=== PATIENT | male | born 1975 | race Caucasian/White ===

== ENCOUNTER 2017-09-05 10:00 | Emergency (ER) | payer BC ==
[~2017-09-05] VITALS: Ht 188 cm; Wt 146.0 kg
[2017-09-05 10:43] LABS: BASOPHILS # (AUTO) 0.03 x10^3/uL (0-0.1); BASOPHILS % (AUTO) 0 % (0-1); EOSINOPHILS # (AUTO) 0.34 x10^3/uL (0-0.4); EOSINOPHILS % (AUTO) 4 % (1-7); LYMPHOCYTES # (AUTO) 1.69 x10^3/uL (1-3.4); LYMPHOCYTES % (AUTO) 21 % (22-44); MD NO; MEAN CORPUSCULAR HEMOGLOBIN 30.4 pg (27.5-34.5); MEAN CORPUSCULAR HGB CONC 34.7 g/dL (33.2-36.2); MEAN CORPUSCULAR VOLUME 87.4 fL (81-97); MEAN PLATELET VOLUME 8.2 fL (7.4-10.4); MONOCYTES # (AUTO) 0.46 x10^3/uL (0.2-0.8); MONOCYTES % (AUTO) 6 % (2-9); NEUTROPHILS # (AUTO) 5.68 x10^3/uL (1.8-6.8); NEUTROPHILS % (AUTO) 69 % (42-75); PLATELET COUNT 282 x10^3/uL (130-400); RED BLOOD COUNT 5.44 x10^6/uL (4.38-5.82); RED CELL DISTRIBUTION WIDTH 13.1 % (9.4-14.8)
[2017-09-05 10:50] LABS: INTERNATIONAL NORMALIZED RATIO 0.98 (0.93-1.1); PROTHROMBIN TIME 10.2 Seconds (9.6-11.5)
[2017-09-05 10:54] LABS: ALBUMIN 3.4 g/dL (3.4-5.0); ANION GAP 7 mmol/L (5-15); CALCIUM 8.4 mg/dL (8.5-10.1); CHLORIDE 109 mmol/L (98-107); CREATININE 1.05 mg/dL (0.7-1.3)
[2017-09-05 10:58] LABS: TROPONIN I 0.021 ng/mL (0.000-0.045)
[2017-09-05] MEDS ORDERED: PLEASE ENTER ALLERGIES MC SCH (11:53)
[2017-09-05] MEDS ORDERED: FENTANYL PF 100 MCG/2ML ONE (11:55)
[2017-09-05] MEDS ORDERED: ETOMIDATE 20 MG/10 ML ONE (11:55)
[2017-09-05] MEDS ORDERED: ETOMIDATE 20 MG/10 ML IVPush ONE (12:00)
[2017-09-05] MEDS ORDERED: FENTANYL PF 100 MCG/2ML IVPush ONE (12:00)
[2017-09-05 12:27] VITALS: BP 126/72
== END 2017-09-05 13:57 | disposition home or self-care (01) ==
LOC: ED 10:47
DX: I48.92 Unspecified atrial flutter (principal); I48.91 Unspecified atrial fibrillation
CPT/HCPCS: 36415; 71045; 80048; 82040; 84484; 85025; 85610; 85730; 92960; 93005; 96374; 96375; 99291; J3010

== ENCOUNTER 2017-09-16 13:35 | Emergency (ER) | payer BC ==
[~2017-09-16] VITALS: Ht 188 cm; Wt 152.4 kg
[2017-09-16 14:25] LABS: BASOPHILS # (AUTO) 0.03 x10^3/uL (0-0.1); BASOPHILS % (AUTO) 0 % (0-1); EOSINOPHILS # (AUTO) 0.45 x10^3/uL (0-0.4); EOSINOPHILS % (AUTO) 6 % (1-7); LYMPHOCYTES # (AUTO) 1.79 x10^3/uL (1-3.4); LYMPHOCYTES % (AUTO) 22 % (22-44); MD NO; MEAN CORPUSCULAR HEMOGLOBIN 29.7 pg (27.5-34.5); MEAN CORPUSCULAR HGB CONC 33.9 g/dL (33.2-36.2); MEAN CORPUSCULAR VOLUME 87.5 fL (81-97); MEAN PLATELET VOLUME 8.1 fL (7.4-10.4); MONOCYTES # (AUTO) 0.41 x10^3/uL (0.2-0.8); MONOCYTES % (AUTO) 5 % (2-9); NEUTROPHILS # (AUTO) 5.65 x10^3/uL (1.8-6.8); NEUTROPHILS % (AUTO) 68 % (42-75); PLATELET COUNT 264 x10^3/uL (130-400); RED BLOOD COUNT 5.33 x10^6/uL (4.38-5.82); RED CELL DISTRIBUTION WIDTH 12.6 % (9.4-14.8)
[2017-09-16] MEDS ORDERED: SODIUM CHLORIDE FLUSH 10ML SYR IVF ONE (14:30)
[2017-09-16 14:35] LABS: ALBUMIN 3.7 g/dL (3.4-5.0); ANION GAP 7 mmol/L (5-15); CALCIUM 8.5 mg/dL (8.5-10.1); CHLORIDE 108 mmol/L (98-107); CREATININE 0.97 mg/dL (0.7-1.3)
[2017-09-16 14:39] LABS: TROPONIN I < 0.015 ng/mL (0.000-0.045)
[2017-09-16 15:28] VITALS: BP 120/79
== END 2017-09-16 15:30 | disposition home or self-care (01) ==
LOC: ED 15:21
DX: R06.00 Dyspnea, unspecified (principal); I48.91 Unspecified atrial fibrillation; I48.92 Unspecified atrial flutter
CPT/HCPCS: 36415; 71045; 80048; 82040; 84484; 85025; 93005; 99285

== ENCOUNTER → 2017-09-21 | Outpatient (CLI) | payer BC ==
[~2017-09-21] MED LIST: ACET325T14 PO; AMIO200T42 PO; APIX5TAB PO; METO25TA35 PO; MORPHINE SULFATE 4 MG/ML, 1ML ONE
== END ==
LOC: CVU 11:03
PROVIDERS: ATTEND Nurse Practitioner Family
DX: I48.91 Unspecified atrial fibrillation (principal); I51.7 Cardiomegaly
CPT/HCPCS: 93306

== ENCOUNTER 2017-09-24 06:31 | Inpatient (IN) | payer BC ==
[2017-09-23 10:40] LABS: BASOPHILS # (AUTO) 0.02 x10^3/uL (0-0.1); BASOPHILS % (AUTO) 0 % (0-1); EOSINOPHILS # (AUTO) 0.39 x10^3/uL (0-0.4); EOSINOPHILS % (AUTO) 4 % (1-7); LYMPHOCYTES # (AUTO) 1.88 x10^3/uL (1-3.4); LYMPHOCYTES % (AUTO) 20 % (22-44); MD NO; MEAN CORPUSCULAR HEMOGLOBIN 29.9 pg (27.5-34.5); MEAN CORPUSCULAR HGB CONC 33.9 g/dL (33.2-36.2); MEAN CORPUSCULAR VOLUME 88.1 fL (81-97); MEAN PLATELET VOLUME 8.3 fL (7.4-10.4); MONOCYTES # (AUTO) 0.39 x10^3/uL (0.2-0.8); MONOCYTES % (AUTO) 4 % (2-9); NEUTROPHILS # (AUTO) 6.85 x10^3/uL (1.8-6.8); NEUTROPHILS % (AUTO) 72 % (42-75); PLATELET COUNT 295 x10^3/uL (130-400); RED BLOOD COUNT 5.67 x10^6/uL (4.38-5.82); RED CELL DISTRIBUTION WIDTH 13.2 % (9.4-14.8)
[2017-09-23 10:47] LABS: INTERNATIONAL NORMALIZED RATIO 1.01 (0.93-1.1); PROTHROMBIN TIME 10.4 Seconds (9.6-11.5)
[2017-09-23 10:53] VITALS: BP 130/83
[2017-09-23 10:54] LABS: ALANINE AMINOTRANSFERASE 51 U/L (12-78); ALBUMIN 3.7 g/dL (3.4-5.0); ANION GAP 10 mmol/L (5-15); CALCIUM 8.6 mg/dL (8.5-10.1); CHLORIDE 106 mmol/L (98-107); CREATININE 1.05 mg/dL (0.7-1.3)
[2017-09-23 10:57] LABS: ALKALINE PHOSPHATASE 103 U/L (45-117); BILIRUBIN,TOTAL 0.7 mg/dL (0.2-1.0); TOTAL PROTEIN 7.7 g/dL (6.4-8.2)
[~2017-09-24] VITALS: Ht 188 cm; Wt 152.5 kg
[~2017-09-24 06:31] MED LIST changes: -ACET325T14 PO; -MORPHINE SULFATE 4 MG/ML, 1ML ONE
[2017-09-24] MEDS ORDERED: SODIUM CHLORIDE 0.9% 1,000 ML IV SCH (06:46)
[2017-09-24] MEDS ORDERED: FENTANYL PF 250 MCG/5ML ONE (07:50)
[2017-09-24] MEDS ORDERED: MIDAZOLAM 1 MG/ML, 2ML ONE (07:50)
[2017-09-24] MEDS ORDERED: ALBUTEROL SULFATE 200 PUFFS/8.5 GR INH ONE (08:00)
[2017-09-24] MEDS ORDERED: SUCCINYLCHOLINE 20 MG/ML, 10ML ONE (08:00)
[2017-09-24] MEDS ORDERED: EPHEDRINE 50 MG/ML, 1ML ONE (08:00)
[2017-09-24] MEDS ORDERED: ROCURONIUM 10 MG/ML,10ML ONE (08:00)
[2017-09-24] MEDS ORDERED: ONDANSETRON 2MG/ML, 2ML ONE (08:00)
[2017-09-24] MEDS ORDERED: DEXAMETHASONE 4 MG/ML, 5ML ONE (08:00)
[2017-09-24] MEDS ORDERED: PROPOFOL 10 MG/ML, 20ML ONE (08:00)
[2017-09-24] MEDS ORDERED: LIDOCAINE-MPF 2% ,5ML ONE (08:11)
[2017-09-24] MEDS ORDERED: HEPARIN 1,000 UNITS/ML, 10ML ONE (08:45)
[2017-09-24] MEDS ORDERED: PROTAMINE SULFATE 10 MG/ML, 5ML ONE (08:46)
[2017-09-24] MEDS ORDERED: FENTANYL PF 100 MCG/2ML ONE ×2 (09:54→10:19)
[2017-09-24] MEDS ORDERED: ZOLPIDEM 5MG TABLET PO PRN (10:00)
[2017-09-24] MEDS ORDERED: ACETAMINOPHEN 325 MG TABLET PO PRN (10:00)
[2017-09-24 10:46] LABS: FIO2 80 %
[2017-09-24] MEDS ORDERED: LACTULOSE 20 GM/30 ML UDC NG PRN (11:00)
[2017-09-24] MEDS ORDERED: SENNA/DOCUSATE TABLET NG PRN (11:00)
[2017-09-24] MEDS: ALBUTEROL/IPRATROPIUM 2.5MG/0.5MG, 3 ML INLINE SCH ×3 (11:00→22:26)
[2017-09-24] MEDS ORDERED: LIDOCAINE-MPF 1%, 2ML ENDO PRN (11:00)
[2017-09-24] MEDS ORDERED: PHARMACY MAY ADJ FOR RENAL FX MC SCH (11:00)
[2017-09-24] MEDS ORDERED: SENNOSIDES 8.8 MG/5 ML ORAL SOL NG PRN (11:00)
[2017-09-24] MEDS ORDERED: FAMOTIDINE 20 MG/2 ML IV SCH (11:00)
[2017-09-24] MEDS ORDERED: BISACODYL 10 MG SUPP PR PRN (11:00)
[2017-09-24] MEDS ORDERED: PROPOFOL 100 ML IV ONE (11:06)
[2017-09-24] MEDS: morphine SULFATE 10 MG/ML, 1ML IVPush PRN ×2 (11:39→19:14)
[2017-09-24] MEDS: PROPOFOL 100 ML IV PRN ×5 (13:28→20:37)
[2017-09-24] MEDS: RANITIDINE 50 MG in SODIUM CHLORIDE 0.9% 100 ML IV SCH ×2 (13:31→20:37)
[2017-09-24] MEDS: SODIUM CHLORIDE 0.9% 1,000 ML IV SCH (13:31)
[2017-09-24 16:00] LABS: MICROSCOPIC INDICATED
[2017-09-24 16:08] LABS: CULTURE INDICATED? NO
[2017-09-24] MEDS: APIXABAN 5 MG TABLET PO SCH (20:37)
[2017-09-24] MEDS ORDERED: METOPROLOL TARTRATE 25 MG TABLET PO SCH (21:00)
[2017-09-25] MEDS: PROPOFOL 100 ML IV PRN ×3 (01:02→06:01)
[2017-09-25] MEDS: morphine SULFATE 10 MG/ML, 1ML IVPush PRN ×2 (02:05→06:46)
[2017-09-25] MEDS: ALBUTEROL/IPRATROPIUM 2.5MG/0.5MG, 3 ML INLINE SCH ×3 (02:48→10:50)
[2017-09-25] MEDS ORDERED: FUROSEMIDE 20 MG/2 ML ONE (03:08)
[2017-09-25] MEDS ORDERED: FUROSEMIDE 20 MG/2 ML IV ONE ×2 (03:30→08:30)
[2017-09-25] MEDS: SODIUM CHLORIDE 0.9% 1,000 ML IV SCH ×2 (03:32→23:07)
[2017-09-25] MEDS ORDERED: RANITIDINE 50 MG in DEXTROSE 5% 100 ML IV ONE (04:00)
[2017-09-25 04:44] LABS: ANION GAP 10 mmol/L (5-15); CHLORIDE 111 mmol/L (98-107)
[2017-09-25 04:46] LABS: BASOPHILS % (AUTO) 0 % (0-1); CREATININE 1.28 mg/dL (0.7-1.3); EOSINOPHILS % (AUTO) 0 % (1-7); LYMPHOCYTES % (AUTO) 6 % (22-44); MD NO; MEAN CORPUSCULAR HEMOGLOBIN 29.6 pg (27.5-34.5); MEAN CORPUSCULAR HGB CONC 33.2 g/dL (33.2-36.2); MEAN CORPUSCULAR VOLUME 89.1 fL (81-97); MEAN PLATELET VOLUME 8.3 fL (7.4-10.4); MONOCYTES # (AUTO) 0.65 x10^3/uL (0.2-0.8); MONOCYTES % (AUTO) 5 % (2-9); NEUTROPHILS # (AUTO) 12.69 x10^3/uL (1.8-6.8); NEUTROPHILS % (AUTO) 90 % (42-75); PLATELET COUNT 282 x10^3/uL (130-400); RED BLOOD COUNT 4.69 x10^6/uL (4.38-5.82); RED CELL DISTRIBUTION WIDTH 13.4 % (9.4-14.8)
[2017-09-25] MEDS ORDERED: CEFTRIAXONE PMX 1GM/50ML 50 ML IV SCH (09:00)
[2017-09-25] MEDS ORDERED: AMIODARONE 200 MG TABLET PO SCH (09:00)
[2017-09-25] MEDS: METRONIDAZOLE PMX 500MG/100ML 100 ML IV SCH ×2 (10:16→17:59)
[2017-09-25] MEDS: APIXABAN 5 MG TABLET PO SCH ×2 (12:48→21:17)
[2017-09-25] MEDS: RANITIDINE 50 MG in SODIUM CHLORIDE 0.9% 100 ML IV SCH ×2 (12:48→19:52)
[2017-09-25] MEDS: ALBUTEROL/IPRATROPIUM 2.5MG/0.5MG, 3 ML NPPB SCH ×2 (14:44→19:07)
[2017-09-26] MEDS: METRONIDAZOLE PMX 500MG/100ML 100 ML IV SCH (01:19)
[2017-09-26 04:24] LABS: BASOPHILS # (AUTO) 0.01 x10^3/uL (0-0.1); BASOPHILS % (AUTO) 0 % (0-1); EOSINOPHILS # (AUTO) 0.04 x10^3/uL (0-0.4); EOSINOPHILS % (AUTO) 0 % (1-7); LYMPHOCYTES # (AUTO) 1.84 x10^3/uL (1-3.4); LYMPHOCYTES % (AUTO) 17 % (22-44); MD NO; MEAN CORPUSCULAR HEMOGLOBIN 29.4 pg (27.5-34.5); MEAN CORPUSCULAR HGB CONC 33.5 g/dL (33.2-36.2); MEAN CORPUSCULAR VOLUME 87.7 fL (81-97); MONOCYTES # (AUTO) 0.66 x10^3/uL (0.2-0.8); MONOCYTES % (AUTO) 6 % (2-9); NEUTROPHILS # (AUTO) 8.36 x10^3/uL (1.8-6.8); NEUTROPHILS % (AUTO) 77 % (42-75); PLATELET COUNT 202 x10^3/uL (130-400); RED BLOOD COUNT 4.34 x10^6/uL (4.38-5.82); RED CELL DISTRIBUTION WIDTH 13.3 % (9.4-14.8)
[2017-09-26 04:28] LABS: ANION GAP 6 mmol/L (5-15); CALCIUM 7.8 mg/dL (8.5-10.1); CHLORIDE 111 mmol/L (98-107)
[2017-09-26] MEDS: RANITIDINE 50 MG in SODIUM CHLORIDE 0.9% 100 ML IV SCH (04:28)
[2017-09-26 04:29] LABS: CREATININE 0.78 mg/dL (0.7-1.3)
[2017-09-26] MEDS: ALBUTEROL/IPRATROPIUM 2.5MG/0.5MG, 3 ML NPPB SCH (07:33)
[2017-09-26] MEDS: APIXABAN 5 MG TABLET PO SCH (07:41)
[2017-09-26] MEDS ORDERED: ACET325T14 PO (09:54)
== END 2017-09-26 11:06 | disposition home or self-care (01) | DRG 273 ==
LOC: CACL 06:31 → ORIP 09:52 → OBSVTOIN 11:15 → CCU 11:31
PROVIDERS: ADMIT Internal Medicine Cardiovascular Disease; ATTEND Internal Medicine Cardiovascular Disease
PROC: 02583ZZ Destruction of Conduction Mechanism, Percutaneous Approach (ICD-10-PCS; 2017-09-24)
PROC: 02563ZZ Destruction of Right Atrium, Percutaneous Approach (ICD-10-PCS; 2017-09-24)
PROC: 02573ZZ Destruction of Left Atrium, Percutaneous Approach (ICD-10-PCS; 2017-09-24)
PROC: 02K83ZZ Map Conduction Mechanism, Percutaneous Approach (ICD-10-PCS; 2017-09-24)
PROC: 0T9B70Z Drainage of Bladder with Drainage Device, Via Natural or Artificial Opening (ICD-10-PCS; 2017-09-24)
PROC: 4A0234Z Measurement of Cardiac Electrical Activity, Percutaneous Approach (ICD-10-PCS; principal; 2017-09-24 08:00)
DX: I48.1 Persistent atrial fibrillation (principal); J96.00 Acute respiratory failure, unspecified whether with hypoxia or hypercapnia; D68.69 Other thrombophilia; Z68.41 Body mass index [BMI] 40.0-44.9, adult; I48.92 Unspecified atrial flutter; E66.9 Obesity, unspecified; G47.33 Obstructive sleep apnea (adult) (pediatric); J45.909 Unspecified asthma, uncomplicated; Z79.01 Long term (current) use of anticoagulants; Z87.01 Personal history of pneumonia (recurrent); Z87.891 Personal history of nicotine dependence
CPT/HCPCS: 36415; 36600; 71045; 71046; 80048; 80053; 81001; 82803; 83735; 84478; 85025; 85347; 85610; 87070; 87081; 87205; 93005; 93308; 93613; 93655; 93656; 93662; 94002; 94003; 94150; 94640; C1732; C1766; C1893; C1894; J0696; J1100; J1644; J2250; J2405; J2704; J2720; J2780; J3010; J3490; J7620; C1730; C1759; G0378; J0330; J1940; J2270; J7030

== ENCOUNTER → 2017-11-11 | Outpatient (CLI) | payer BC ==
[~2017-11-11] MED LIST changes: +ACET325T14 PO; +OMNIPAQUE 350 MG/ML, 100ML BOTTLE ONE
== END | disposition home or self-care (01) ==
LOC: CFH 13:47
PROVIDERS: ATTEND Internal Medicine Cardiovascular Disease
DX: R06.02 Shortness of breath (principal); Z98.890 Other specified postprocedural states
CPT/HCPCS: 71260; Q9967

== ENCOUNTER → 2018-10-06 | Outpatient (CLI) | payer BC ==
[~2018-10-06] MED LIST changes: -OMNIPAQUE 350 MG/ML, 100ML BOTTLE ONE
== END | disposition home or self-care (01) ==
LOC: CVU 13:36
PROVIDERS: ATTEND Physician Assistant Medical
DX: I11.9 Hypertensive heart disease without heart failure (principal); I48.2 Chronic atrial fibrillation; Z79.01 Long term (current) use of anticoagulants
CPT/HCPCS: 93306

== ENCOUNTER 2019-11-30 06:07 | Day surgery (SDC) | payer BC ==
[~2019-11-30] VITALS: Ht 188 cm; Wt 160.0 kg
[2019-11-30] MEDS ORDERED: FLEC100T PO (06:08)
[2019-11-30] MEDS ORDERED: SODIUM CHLORIDE 0.9% 1,000 ML IV SCH (06:30)
[2019-11-30 06:54] LABS: BASOPHILS # (AUTO) 0.02 x10^3/uL (0-0.1); BASOPHILS % (AUTO) 0 % (0-1); EOSINOPHILS # (AUTO) 0.13 x10^3/uL (0-0.4); EOSINOPHILS % (AUTO) 2 % (1-7); LYMPHOCYTES # (AUTO) 1.54 x10^3/uL (1-3.4); LYMPHOCYTES % (AUTO) 18 % (22-44); MD NO; MEAN CORPUSCULAR HEMOGLOBIN 29.9 pg (27.5-34.5); MEAN CORPUSCULAR VOLUME 87.8 fL (81-97); MEAN PLATELET VOLUME 8.3 fL (7.4-10.4); MONOCYTES % (AUTO) 6 % (2-9); NEUTROPHILS # (AUTO) 6.18 x10^3/uL (1.8-6.8); NEUTROPHILS % (AUTO) 74 % (42-75); PLATELET COUNT 244 x10^3/uL (130-400); RED BLOOD COUNT 5.37 x10^6/uL (4.38-5.82); RED CELL DISTRIBUTION WIDTH 13.7 % (9.4-14.8)
[2019-11-30 07:33] LABS: ANION GAP 10 mmol/L (5-15); CALCIUM 8.4 mg/dL (8.5-10.1); CHLORIDE 112 mmol/L (98-107); CREATININE 0.83 mg/dL (0.7-1.3)
[2019-11-30] MEDS ORDERED: PROPOFOL 10 MG/ML, 20ML ONE (07:35)
[2019-11-30] MEDS ORDERED: NALOXONE 0.4 MG/ML, 1ML IVPush PRN ×2 (08:00)
== END 2019-11-30 09:03 | disposition home or self-care (01) ==
LOC: CACL 06:07
PROVIDERS: ATTEND Internal Medicine Clinical Cardiac Electrophysiology
DX: I48.20 Chronic atrial fibrillation, unspecified (principal); Z11.59 Encounter for screening for other viral diseases; F17.210 Nicotine dependence, cigarettes, uncomplicated; Z88.0 Allergy status to penicillin; Z79.899 Other long term (current) drug therapy; Z72.89 Other problems related to lifestyle; Z82.49 Family history of ischemic heart disease and other diseases of the circulatory system
CPT/HCPCS: 36415; 71046; 80048; 85025; 92960; 93005; 93312; 93321; J2704; U0001

== ENCOUNTER 2020-01-11 12:35 | Outpatient (CLI) | payer BC ==
[~2020-01-11 12:35] MED LIST changes: +FLEC100T PO
== END 2020-01-11 23:59 | disposition home or self-care (01) ==
LOC: STAR 12:35
PROVIDERS: ATTEND Surgery
DX: Z01.818 Encounter for other preprocedural examination (principal); Z11.59 Encounter for screening for other viral diseases; N63.20 Unspecified lump in the left breast, unspecified quadrant
CPT/HCPCS: 36415; 87635

== ENCOUNTER → 2020-01-29 | Outpatient (CLI) | payer BC ==
[~2020-01-29] MED LIST changes: +OMNIPAQUE 350 MG/ML, 150 ML BOTTLE ONE
== END | disposition home or self-care (01) ==
LOC: CFH 08:43
PROVIDERS: ATTEND Internal Medicine Cardiovascular Disease
DX: I48.0 Paroxysmal atrial fibrillation (principal)
CPT/HCPCS: 71046; 75572; Q9967

== ENCOUNTER → 2020-01-29 | Outpatient (CLI) | payer BC ==
[~2020-01-29] MED LIST changes: -OMNIPAQUE 350 MG/ML, 150 ML BOTTLE ONE
== END | disposition home or self-care (01) ==
LOC: STAR 10:37
PROVIDERS: ATTEND Anesthesiology
DX: Z01.818 Encounter for other preprocedural examination (principal); Z11.59 Encounter for screening for other viral diseases
CPT/HCPCS: 36415; 87635

== ENCOUNTER 2020-02-02 05:59 | Inpatient (IN) | payer BC ==
[~2020-02-02] VITALS: Ht 188 cm; Wt 147.7 kg
[2020-02-02] MEDS ORDERED: SODIUM CHLORIDE 0.9% 1,000 ML IV SCH (06:24)
[2020-02-02 06:29] VITALS: BP 152/102
[2020-02-02] MEDS ORDERED: LIDOCAINE 1%, 20ML ONE (07:44)
[2020-02-02] MEDS ORDERED: MIDAZOLAM 1 MG/ML, 2ML ONE (08:02)
[2020-02-02] MEDS ORDERED: FENTANYL PF 250 MCG/5ML ONE (08:02)
[2020-02-02] MEDS ORDERED: SUCCINYLCHOLINE 20 MG/ML, 10ML ONE (08:05)
[2020-02-02] MEDS ORDERED: DEXAMETHASONE 4 MG/ML, 1ML ONE ×2 (08:05)
[2020-02-02] MEDS ORDERED: PROPOFOL 10 MG/ML, 20ML ONE (08:05)
[2020-02-02] MEDS ORDERED: ROCURONIUM 10MG/ML,5ML ONE (08:05)
[2020-02-02] MEDS ORDERED: PHENYLEPHRINE 10 MG/ML ONE (08:05)
[2020-02-02] MEDS ORDERED: HEPARIN 1,000 UNITS/ML, 10ML ONE ×3 (08:53→09:32)
[2020-02-02] MEDS ORDERED: FENTANYL PF 100 MCG/2ML ONE ×2 (10:27→11:25)
[2020-02-02] MEDS ORDERED: MIDAZOLAM 1 MG/ML, 2ML IV PRN (12:00)
[2020-02-02] MEDS ORDERED: HYDROmorphone 1 MG/ML, 1ML INJ IVPush PRN (12:00)
[2020-02-02] MEDS ORDERED: EPHEDRINE 50 MG/ML, 1ML IVPush PRN (12:00)
[2020-02-02] MEDS ORDERED: ONDANSETRON 2MG/ML, 2ML IVPush PRN (12:00)
[2020-02-02] MEDS ORDERED: PROMETHAZINE 25 MG/ML, 1ML IVPush PRN (12:00)
[2020-02-02] MEDS ORDERED: FENTANYL PF 100 MCG/2ML IV PRN (12:00)
[2020-02-02] MEDS ORDERED: MEPERIDINE/PF 25MG/0.5ML IVPush PRN (12:00)
[2020-02-02] MEDS ORDERED: ACETAMINOPHEN 325 MG TABLET PO PRN (12:00)
[2020-02-02] MEDS ORDERED: ALBUTEROL SULFATE 2.5 MG/3 ML NPPB PRN (12:00)
[2020-02-02] MEDS ORDERED: hydrALAzine 20 MG/ML, 1ML IV PRN (12:00)
[2020-02-02] MEDS ORDERED: DIAZEPAM 5 MG/ML, 2ML IVPush PRN (12:00)
[2020-02-02] MEDS ORDERED: OXYcodone 5 MG/5 ML ORAL.SOL UDC PO PRN (12:00)
[2020-02-02] MEDS ORDERED: DIPHENHYDRAMINE 50 MG/ML, 1ML IVPush PRN (12:00)
[2020-02-02] MEDS ORDERED: LABETALOL 5MG/ML, 20ML IV PRN (12:00)
[2020-02-02] MEDS ORDERED: PROMETHAZINE 12.5 MG SUPP PR PRN (12:00)
[2020-02-02] MEDS ORDERED: APIXABAN 5 MG TABLET ONE (12:43)
[2020-02-02] MEDS: APIXABAN 5 MG TABLET PO SCH (12:44)
[2020-02-02 13:40] VITALS: BP 122/75
[2020-02-02 20:17] VITALS: BP 133/80
[2020-02-02] MEDS: DOFETILIDE 125 MCG CAPSULE PO SCH (21:00)
[2020-02-02] MEDS: COLCHICINE 0.6 MG CAPSULE PO SCH (21:09)
[2020-02-02] MEDS ORDERED: MELATONIN 5 MG TABLET PO SCH (21:30)
[2020-02-02 21:31] LABS: ANION GAP 6 mmol/L (5-15); CHLORIDE 110 mmol/L (98-107); CREATININE 0.96 mg/dL (0.7-1.3)
[2020-02-03 02:10] VITALS: BP 118/68
[2020-02-03 06:09] LABS: ANION GAP 6 mmol/L (5-15); CALCIUM 7.7 mg/dL (8.5-10.1); CHLORIDE 110 mmol/L (98-107)
[2020-02-03 06:13] LABS: CREATININE 0.69 mg/dL (0.7-1.3)
[2020-02-03 08:00] VITALS: BP 120/70
[2020-02-03] MEDS: DOFETILIDE 125 MCG CAPSULE PO SCH (09:00)
[2020-02-03] MEDS: COLCHICINE 0.6 MG CAPSULE PO SCH (09:16)
[2020-02-03] MEDS: APIXABAN 5 MG TABLET PO SCH (09:17)
[2020-02-03] MEDS ORDERED: FLECAINIDE 100MG TABLET PO SCH (10:00)
[2020-02-03] MEDS ORDERED: FLEC100T PO (10:42)
[2020-02-03] MEDS ORDERED: APIX5TAB PO (10:42)
[2020-02-03] MEDS ORDERED: COLC0.6C3 PO (10:51)
== END 2020-02-03 11:55 | disposition home or self-care (01) | DRG 274 ==
LOC: CACL 05:59 → ORIP 12:08 → 5SO 13:23 → DCLOUNGE 02-03 11:50
PROVIDERS: ADMIT Internal Medicine Cardiovascular Disease; ATTEND Internal Medicine Cardiovascular Disease
PROC: 02583ZZ Destruction of Conduction Mechanism, Percutaneous Approach (ICD-10-PCS; principal; 2020-02-02)
PROC: 4A0234Z Measurement of Cardiac Electrical Activity, Percutaneous Approach (ICD-10-PCS; 2020-02-02)
PROC: B245ZZZ Ultrasonography of Left Heart (ICD-10-PCS; 2020-02-02)
DX: I48.0 Paroxysmal atrial fibrillation (principal); D68.69 Other thrombophilia; Z68.41 Body mass index [BMI] 40.0-44.9, adult; E66.9 Obesity, unspecified; I48.19 Other persistent atrial fibrillation; Z87.891 Personal history of nicotine dependence; Z79.899 Other long term (current) drug therapy
CPT/HCPCS: 36415; 93613; 93656; 93657; 93662; J3490; 80048; 83735; 93005; 93306; C1732; C1766; C1893; C1894; G0378; J1100; J1644; J2250; J2704; J3010; C1730; C1759; J0330; J2370

== ENCOUNTER 2020-02-04 11:49 | Emergency (ER) | payer BC ==
[~2020-02-04] VITALS: Ht 188 cm; Wt 154.0 kg
[~2020-02-04 11:49] MED LIST changes: +COLC0.6C3 PO
--- NOTE | 2020-02-04 12:07 | NUR ---
Patient had ablation Saturday 02/03 and was discharged yesterday. Since discharge patient has been SOB with no improvement, patient also c/o [place], dizziness. Patient c/o 1/10 chest pain, O2 saturation 94% on RA, HR 63. Accompanied by significant other, A&Ox4, no visible signs of distress, connected to monitoring engineer.
[2020-02-04 12:38] LABS: BASOPHILS # (AUTO) 0.01 x10^3/uL (0-0.1); BASOPHILS % (AUTO) 0 % (0-1); EOSINOPHILS # (AUTO) 0.03 x10^3/uL (0-0.4); EOSINOPHILS % (AUTO) 0 % (1-7); LYMPHOCYTES # (AUTO) 1.56 x10^3/uL (1-3.4); LYMPHOCYTES % (AUTO) 12 % (22-44); MD NO; MEAN CORPUSCULAR HEMOGLOBIN 29.5 pg (27.5-34.5); MEAN CORPUSCULAR HGB CONC 32.8 g/dL (33.2-36.2); MEAN CORPUSCULAR VOLUME 89.9 fL (81-97); MEAN PLATELET VOLUME 8.1 fL (7.4-10.4); MONOCYTES # (AUTO) 0.62 x10^3/uL (0.2-0.8); MONOCYTES % (AUTO) 5 % (2-9); NEUTROPHILS # (AUTO) 10.41 x10^3/uL (1.8-6.8); NEUTROPHILS % (AUTO) 82 % (42-75); PLATELET COUNT 197 x10^3/uL (130-400); RED BLOOD COUNT 4.73 x10^6/uL (4.38-5.82); RED CELL DISTRIBUTION WIDTH 13.7 % (9.4-14.8)
[2020-02-04 12:50] LABS: ALANINE AMINOTRANSFERASE 49 U/L (12-78); ALBUMIN 3.5 g/dL (3.4-5.0); ANION GAP 5 mmol/L (5-15); CALCIUM 8.4 mg/dL (8.5-10.1); CHLORIDE 109 mmol/L (98-107); CREATININE 0.74 mg/dL (0.7-1.3)
[2020-02-04 12:54] LABS: ALKALINE PHOSPHATASE 73 U/L (45-117); BILIRUBIN,TOTAL 0.8 mg/dL (0.2-1.0); TOTAL PROTEIN 6.6 g/dL (6.4-8.2)
[2020-02-04 13:01] LABS: TROPONIN I 0.911 ng/mL (0.000-0.045)
--- NOTE | 2020-02-04 13:10 | NUR ---
TROPONIN LAB VALUE REPORTED TO PROVIDER. PATIENT RESTING IN GURNEY, C/O OF SOME DIZZINESS. SPOUSE AT BEDSIDE, CALL LIGHT WITHIN REACH, NO FURTHER NEEDS AT THIS TIME.
--- NOTE | 2020-02-04 14:36 | NUR ---
PATIENT TO CT.
[2020-02-04] MEDS ORDERED: OMNIPAQUE 350 MG/ML, 100ML BOTTLE ONE (14:52)
--- NOTE | 2020-02-04 15:04 | NUR ---
PATIENT BACK FROM CT, SITTING AT EDGE OF BED, ATTACHED TO MACHINE TOOL MECHANIC, CALL LIGHT WITHIN REACH, NO FURTHER NEEDS AT THIS TIME.
[2020-02-04 15:30] VITALS: BP 169/75
--- NOTE | 2020-02-04 15:30 | NUR ---
PATIENT LAYING IN BED, CONNECTED TO LEATHER FINISHER, CALL LIGHT WITHIN REACH, SIGNIGICANT OTHER AT BEDSIDE, NO C/O PAIN AT THIS TIME.
--- NOTE | 2020-02-04 16:00 | NUR ---
ER HARINDER GORE AT BEDSIDE TO RJ POC.
--- NOTE | 2020-02-04 16:23 | NUR ---
Patient and significant other given discharge instructions and they have confirmed that they understand the instructions, no questions. Incentive spirometer given to patient, and educated on how to use. IV removed with tip intact. Patient accompanied by significant other, ambulatory with steady gait to discharge desk.
== END 2020-02-04 16:24 | disposition home or self-care (01) ==
LOC: ED 12:38
DX: I50.9 Heart failure, unspecified (principal); R06.00 Dyspnea, unspecified; I48.91 Unspecified atrial fibrillation; I48.92 Unspecified atrial flutter; R79.89 Other specified abnormal findings of blood chemistry; F17.200 Nicotine dependence, unspecified, uncomplicated
CPT/HCPCS: 36415; 71045; 71275; 80053; 83880; 84484; 85025; 93005; 99285; Q9967

== ENCOUNTER 2020-05-08 14:36 | Outpatient (CLI) | payer BC ==
[2020-05-08] MEDS ORDERED: FLEC100T PO (14:55)
== END 2020-05-08 23:59 | disposition home or self-care (01) ==
LOC: STAR 14:36
PROVIDERS: ATTEND Family Medicine
DX: Z02.9 Encounter for administrative examinations, unspecified (principal)

== ENCOUNTER 2020-05-13 06:20 | Day surgery (SDC) | payer BC ==
[~2020-05-13] VITALS: Ht 188 cm; Wt 148.8 kg
[2020-05-13] MEDS ORDERED: CHLORHEXIDINE 15 ML UDC MM STA (06:38)
[2020-05-13] MEDS ORDERED: LACTATED RINGERS 1,000 ML IV SCH (06:38)
[2020-05-13 06:39] VITALS: BP 138/91
[2020-05-13] MEDS ORDERED: CHLORHEXIDINE 15 ML UDC ONE (06:44)
[2020-05-13] MEDS ORDERED: BUPIVACAINE/PF 0.5% ONE (06:45)
[2020-05-13] MEDS ORDERED: EPINEPHRINE 1 MG/ML, 1ML ONE (06:45)
[2020-05-13] MEDS ORDERED: FENTANYL PF 100 MCG/2ML ONE (07:18)
[2020-05-13] MEDS ORDERED: MIDAZOLAM 1 MG/ML, 2ML ONE ×2 (07:22→07:37)
[2020-05-13] MEDS ORDERED: CLINDAMYCIN 150 MG/ML, 6ML ONE (07:34)
[2020-05-13] MEDS ORDERED: GLYCOPYRROLATE 0.2MG/1ML, 5ML ONE (08:13)
[2020-05-13] MEDS ORDERED: DEXAMETHASONE 4 MG/ML, 1ML ONE (08:13)
[2020-05-13] MEDS ORDERED: ONDANSETRON 2MG/ML, 2ML ONE (08:13)
[2020-05-13] MEDS ORDERED: NEOSTIGMINE 1 MG/ML, 10ML ONE (08:13)
[2020-05-13] MEDS ORDERED: PROPOFOL 10 MG/ML, 20ML ONE (08:13)
[2020-05-13] MEDS ORDERED: SUCCINYLCHOLINE 20 MG/ML, 10ML ONE (08:13)
[2020-05-13] MEDS ORDERED: CEFAZOLIN 1,000 MG ONE (08:13)
[2020-05-13] MEDS ORDERED: ROCURONIUM 10MG/ML,5ML ONE (08:13)
== END 2020-05-13 10:05 | disposition home or self-care (01) ==
LOC: OUT 06:20
PROVIDERS: ATTEND Surgery
DX: R22.2 Localized swelling, mass and lump, trunk (principal); I48.91 Unspecified atrial fibrillation; F17.210 Nicotine dependence, cigarettes, uncomplicated; E66.01 Morbid (severe) obesity due to excess calories; Z68.41 Body mass index [BMI] 40.0-44.9, adult; Z88.0 Allergy status to penicillin; Z98.890 Other specified postprocedural states; Z79.899 Other long term (current) drug therapy; Z72.89 Other problems related to lifestyle; Z20.828 Contact with and (suspected) exposure to other viral communicable diseases
CPT/HCPCS: 21555; 87635; 88307; J0171; J0330; J0690; J1100; J2250; J2405; J2704; J2710; J3010; J7120

== ENCOUNTER 2020-11-06 06:59 | Day surgery (SDC) | payer BC ==
[~2020-11-06] VITALS: Ht 188 cm; Wt 161.0 kg
[2020-11-06 08:13] VITALS: BP 136/84
[2020-11-06] MEDS ORDERED: SODIUM CHLORIDE 0.9% 1,000 ML IV ONE (08:30)
[2020-11-06] MEDS ORDERED: PLEASE ENTER HEIGHT AND WEIGHT MC SCH (08:30)
[2020-11-06 08:39] LABS: ANION GAP 5 mmol/L (5-15); CALCIUM 8.4 mg/dL (8.5-10.1); CHLORIDE 110 mmol/L (98-107); CREATININE 0.71 mg/dL (0.7-1.3)
[2020-11-06] MEDS ORDERED: PROPOFOL 10 MG/ML, 20ML ONE (09:56)
== END 2020-11-06 10:26 | disposition home or self-care (01) ==
LOC: CACL 06:59
PROVIDERS: ATTEND Internal Medicine Cardiovascular Disease
DX: I48.91 Unspecified atrial fibrillation (principal); I08.1 Rheumatic disorders of both mitral and tricuspid valves; E66.9 Obesity, unspecified; Z20.822 Contact with and (suspected) exposure to COVID-19; Z68.41 Body mass index [BMI] 40.0-44.9, adult; Z79.01 Long term (current) use of anticoagulants; Z79.899 Other long term (current) drug therapy; Z88.0 Allergy status to penicillin; Z88.8 Allergy status to other drugs, medicaments and biological substances
CPT/HCPCS: 36415; 80048; 87635; 92960; 93005; 93312; 93325; J2704